=== PATIENT | female | born 1950 | race Caucasian/White ===

== ENCOUNTER 2019-09-20 11:25 | Observation (INO) | payer MEDICARE, BC ==
[~2019-09-20] VITALS: Ht 170.2 cm; Wt 82.3 kg
[2019-09-20] VITALS (10 sets, daily range): BP systolic 107–142; BP diastolic 62–82
[~2019-09-20 11:25] MED LIST: EMBREL SC; METHATREXATE; VIVELLE0.1 MG TD
--- NOTE | 2019-09-20 11:36 | NUR ---
PT TO ROOM FOR EXAM
--- NOTE | 2019-09-20 12:27 | NUR ---
PT HAD 20+ RUN OF V-TACH; PT STATES SHE FEELS SOB AND FEELS PALPITATIONS IN CHEST; MD NOTIFIED; MONITORING DEVICES IN PLACE; BP STABLE; SPOUSE AT BEDSIDE; ADVISED OF POC
--- NOTE | 2019-09-20 12:38 | NUR ---
AMIODERONE BOLUS STARTED AT THIS TIME; PT VERBALIZES UNDERSTANDING OF MEDICATIONS AND INDICATIONS; DR MORELAND AT BEDSIDE TO DISCUSS POC;WILL CONTINUE TO MONITOR
[2019-09-20 12:45] LABS: HEMOGLOBIN 13.6 g/dl (12.0-16.0); IMMATURE GRANULOCYTES 0.4 % (0.0-5.0); MEAN CELL VOLUME 87.6 fL CALC (80.0-100.0); MEAN CORPUSCULAR HGB 30.6 pG CALC (26.0-32.0); MEAN CORPUSCULAR HGB CONC 34.9 g/L CALC (32.0-36.0); NEUT# 5.39 thou/uL (2.00-7.15); RED BLOOD COUNT 4.45 mill/uL (4.20-5.60); RED CELL DISTRI WIDTH 11.9 % (11.5-15.5)
[2019-09-20] MEDS ORDERED: NORVASC2.5 M1 PO (12:45)
[2019-09-20] MEDS ORDERED: HYDROCHLOROT25 MG PO (12:46)
[2019-09-20] MEDS ORDERED: UROCIT-K 5540 MG PO (12:53)
[2019-09-20 13:01] LABS: ALBUMIN 4.4 g/dL (3.2-5.0); ALKALINE PHOSPHATASE 105 u/l (38-126); BUN 18 mg/dL (8-23); BUN/CREATININE RATIO 38 (12-20 (CALC)); CHLORIDE 100 mmol/l (95-108); CREATININE 0.5 mg/dL (0.5-1.0); GFR > 60 ML/MIN (>=60 (CALC)); GFR FOR AFR.AMER. > 60 ML/MIN (>=60 (CALC)); SGOT/AST 29 u/l (9-36); SODIUM 135 mmol/l (137-146); TOTAL PROTEIN 7.7 g/dL (6.3-8.2)
[2019-09-20 13:03] LABS: ANION GAP 15 (6-22 (CALC)); BILIRUBIN, TOTAL 0.6 mg/dL (0.0-1.4); CARBON DIOXIDE 23 mmol/l (22-30); POTASSIUM 2.9 mmol/l (3.5-5.1)
--- NOTE | 2019-09-20 13:09 | NUR ---
[place]REWICK PLACED FOR PT COMFORT AND TO REDUCE PT EXERTION
--- NOTE | 2019-09-20 14:10 | NUR ---
PT RESTING ON STRETCHER; NO S/S OF DISTRESS NOTED; PT ADVISED OF POC AND CONTINUED WAIT TIME FOR ADMISSION; VSS; AMIODERONE DRIP INFUSING; CALL LIGHT WITHIN REACH;WILL CONTINUE TO MONITOR
[2019-09-20 14:29] LABS: URINE BILIRUBIN - DIPSTICK NEGATIVE (NEGATIVE); URINE BLOOD DIPSTICK SMALL (NEGATIVE); URINE COLOR YELLOW; URINE GLUCOSE - DIPSTICK NEGATIVE (NEGATIVE); URINE KETONE NEGATIVE (NEGATIVE); URINE LEUK ESTERASE NEGATIVE (NEGATIVE); URINE NITRITE - DIPSTICK NEGATIVE (Negative); URINE PROTEIN - DIPSTICK NEGATIVE (NEG-TRACE); URINE UROBILINOGEN - DIPSTICK 0.2 E.U./dL (0.2)
[2019-09-20 14:31] LABS: URINE SQUAMOUS EPITHELIAL CELL FEW EPI/hpf (0-FEW); URINE WBC 0-2 WBC/hpf (0-5)
--- NOTE | 2019-09-20 15:10 | NUR ---
PT RESTING ON STRETCHER; TOLERATING AMIODERONE WELL; WILL CONTINUE TO MONITOR
--- NOTE | 2019-09-20 15:40 | NUR ---
PT ADMITTED TO ICU FROM ED, VIA STRETCHER. PT STOOD AND TRANSFERRED SELF FROM STRETCHER TO BS. PT WITH STEADY GAIT NOTED. PT A&OX4, ABLE TO MAKE NEEDS KNOWN, PT DENIES CP, PALPITATIONS, OR DISTRESS AT THIS TIME. SR ON TELEMETRY, HR 77. RESPIRATIONS EVEN/UNLABORED, SA02@100% RA. ABDOMEN SOFT, DISTENDED. NON-TENDER. BSX4 ACTIVE, LBM 3-12-20. PT ORIENTED TO BED, CALL LIGHT AND ROOM. AT BEDSIDE. CALL LIGHT IN REACH. WILL MONITOR.
--- NOTE | 2019-09-20 15:45 | NUR ---
Admission Note Report Given to: RANDY JURADO Transported by: Wheelchair X Stretcher Transported with: X Nurse Transporter X Patent IV O2 X Hydro Technician Location: X ICU MS2
--- NOTE | 2019-09-20 17:15 | NUR ---
DR. BARAJAS AT BEDSIDE FOR ASSESSMENT AND TO DISCUSS PLAN OF CARE. NEW ORDERS RECIEVED.
--- NOTE | 2019-09-20 17:39 | NUR ---
DIETARY ON UNIT, DINNER TRAY SET UP. CALL LIGHT IN REACH.
--- NOTE | 2019-09-20 17:59 | NUR ---
DAUGHTER ARRIVED AT BEDSIDE FOR VISIT. PT OFFERS NO COMPLAINTS AT THIS TIME. CALL LIGHT IN REACH.
--- NOTE | 2019-09-20 18:21 | NUR ---
PT ASSISTED TO BSC, THEN BACK TO BED. PT TOLERATED WELL.
--- NOTE | 2019-09-20 19:00 | NUR ---
YPATIENT SITS ON SIDE OF BED, ASSISTED STNDVY TO BSC. NO DIFFICULTY WALKING. ALERT AND ORIENTED X4. ON RA, NO SOB NOTED. HEAD TO TOE NURSING ASSESSMNET PERFORMED. SR ON TELE. NO COMPLAINTS OF PAIN. POC FOR TONIGHT DISCUSSED. RAC AND LH IV'S INTACT, AMIODARONE DRIP INFUSING PROPERLY. SELF REPSITIONS. CALL LIGHT WITHIN REACH.
--- NOTE | 2019-09-20 20:35 | NUR ---
PATIENT GIVEN LOVENOX, EDUACTED. NOW WASHING UP.NO ACUTE DISTRESS SHOWN. DENIES DIZZINESS OR PAIN.
--- NOTE | 2019-09-20 20:57 | NUR ---
PATIENT ASSISTED WITH PLACING CLEAN GOWN ON. NOW LAYS BACK IN BED. NO ACUTE DISTRES SSHOWN. CALL LIGHT WITHIN REACH.
--- NOTE | 2019-09-20 22:20 | NUR ---
PATIENT ABLE TO SWLALOE POTASSIUM PILLS WITH CRACKERS AND WATER. NO ACUTE DISTRESS SHOWN. LAUGHS AND CONVERSATES. CALL LIGHT WITHIN REACH.
--- NOTE | 2019-09-20 23:00 | NUR ---
PATIENT TUBULAR PRODUCTS FABRICATOR LIGHT, ASSIST STNBY TO BSC. BACK IN BED. NO COMPLAINTS. NO ACUTE DISTRESS SHOWN. CALL LIGHT WITHIN REACH.
--- NOTE | 2019-09-20 23:13 | NUR ---
CARDENE DRIP TITRATED PER PROTOCOL. PATIENT AWAKENS EASILY WHEN SPOKEN TO, NEURO CHECK PERFROMED PER DRIP PROTOCOL. PT ORIENTED X4. PUPILS UNCHANGED FROM PRIOR ASSESSMENT. REQUESTS ICE, PROVIDE. CALL LIGHT WITHIN REACH.
[2019-09-21] VITALS (13 sets, daily range): BP systolic 98–158; BP diastolic 53–76
--- NOTE | 2019-09-21 03:24 | NUR ---
PATIENT LAYS ON HER LEFT SIDE. COMPLAINS OF BED IS UNCOMFORTABLE. NO NEEDS AT THIS TIME. CALL LIGHT WITHIN REACH. AFEBRILE, SR ON TELE. ON RA.
--- NOTE | 2019-09-21 04:10 | NUR ---
PT MORTGAGE LOAN SPECIALIST LIGHT, ASSIST ANGE TO BSCDANIE. NOW LAYS BACK IN BED. CONVERSATES ABOUT HER RECENT STRESSES. CALL LIGHT WITHIN REACH.
[2019-09-21 05:40] LABS: ANION GAP 8 (6-22 (CALC)); BUN 12 mg/dL (8-23); BUN/CREATININE RATIO 24 (12-20 (CALC)); CARBON DIOXIDE 25 mmol/l (22-30); CHLORIDE 108 mmol/l (95-108); CREATININE 0.5 mg/dL (0.5-1.0); GFR > 60 ML/MIN (>=60 (CALC)); GFR FOR AFR.AMER. > 60 ML/MIN (>=60 (CALC)); MAGNESIUM 2.3 mg/dL (1.6-2.3); POTASSIUM 3.7 mmol/l (3.5-5.1); SODIUM 138 mmol/l (137-146)
--- NOTE | 2019-09-21 06:45 | NUR ---
RECIEVED REPORT FROM ELSA. ASSUMED PT CARE.
--- NOTE | 2019-09-21 07:30 | NUR ---
PT A&OX4, ABLE TO MAKE NEEDS KNOWN. PT REMAINS IN SR ON TELEMETRY, HR 78. AMIODARONE GTT CONTINUES. RESPIRATIONS EVEN/UNLABORED, LS CLEAR SAOR95%RA. PT DENIES CP, SOB OR DISTRESS AT THIS TIME. CALL LIGHT IN REINA. WILL MONITOR.
--- NOTE | 2019-09-21 08:24 | NUR ---
DR. BARAJAS AT BEDSIDE FOR ASSESSMENT AND TO DISCUSS PLAN OF CARE.
--- NOTE | 2019-09-21 09:00 | NUR ---
PT ASSISTED TO THE RECLINER, PT TRANSFERRED WELL. CALL LIGHT IN REACH. WILL MONITOR.
--- NOTE | 2019-09-21 09:59 | NUR ---
ARRIVED AT BEDSIDE.
[2019-09-21] MEDS ORDERED: TENORMIN50 MG PO (11:21)
--- NOTE | 2019-09-21 11:22 | NUR ---
DR. BARAJAS AT BEDSIDE FOR ASSESSMENT AND TO DISCUSS PLAN OF Care. NEW ORDERS RECIEVED.
--- NOTE | 2019-09-21 12:45 | NUR ---
IV site discontinued, cath intact. No edema , no redness, voices no discomfort.
--- NOTE | 2019-09-21 13:20 | NUR ---
Discharge instructions given. Patient verbalizes understanding of same. Discharged in stable condition via Wheelchair to Home with family. All belongings sent with pt.
== END 2019-09-21 13:20 | disposition home or self-care (01) ==
LOC: ED 11:25 → ED-I 13:34 → ED 14:11 → ICU 14:12 → ED-I 14:12 → ICU 15:53
PROVIDERS: Family Medicine; ADMIT Internal Medicine; ATTEND Internal Medicine
PROC: 3E0234Z Introduction of Serum, Toxoid and Vaccine into Muscle, Percutaneous Approach (ICD-10-PCS; principal; 2019-09-21)
DX: I47.2 Ventricular tachycardia (principal); I49.3 Ventricular premature depolarization; I10 Essential (primary) hypertension; M06.9 Rheumatoid arthritis, unspecified; Z23 Encounter for immunization
CPT/HCPCS: J0282; J1650; J3475

== ENCOUNTER 2020-08-15 12:20 | Emergency (ER) | payer MEDICARE, BC ==
[~2020-08-15 12:20] MED LIST changes: +HYDROCHLOROT25 MG PO; +NORVASC2.5 M1 PO; +TENORMIN50 MG PO; +UROCIT-K 5540 MG PO
== END 2020-08-15 13:05 | disposition left against medical advice (07) ==
LOC: ED 12:20 → LWOBS 13:05
DX: Z53.21 Procedure and treatment not carried out due to patient leaving prior to being seen by health care provider (principal)

== ENCOUNTER 2020-12-28 19:07 | Observation (INO) | payer MEDICARE, BC ==
[~2020-12-28] VITALS: Ht 167.6 cm; Wt 82.0 kg
--- NOTE | 2020-12-28 19:07 | NUR ---
BY EMS TO ROOM AMBULATORY
[2020-12-28 19:48] LABS: HEMATOCRIT 36.7 % (37.0-47.0); HEMOGLOBIN 12.3 g/dl (12.0-16.0); IMMATURE GRANULOCYTES 0.3 % (0.0-5.0); MEAN CELL VOLUME 91.3 fL CALC (80.0-100.0); MEAN CORPUSCULAR HGB 30.6 pG CALC (26.0-32.0); MEAN CORPUSCULAR HGB CONC 33.5 g/dL CAL (32.0-36.0); NEUT# 5.63 thou/uL (2.00-7.15); RED BLOOD COUNT 4.02 mill/uL (4.20-5.60); RED CELL DISTRI WIDTH 13.7 % (11.5-15.5)
--- NOTE | 2020-12-28 20:00 | NUR ---
PT PLEASANT AND NAD, VSS, SR ON MONITOR AND NO PALPITATIONS AT THIS TIME
[2020-12-28 20:02] LABS: D-DIMER 0.53 mg/L (0.19-0.60)
[2020-12-28] MEDS ORDERED: ENBREL50 MG/M1 SC (20:06)
[2020-12-28] MEDS ORDERED: METHOTREXATE S2.5 MG PO (20:07)
[2020-12-28] MEDS ORDERED: ELIQUIS5 MG PO (20:08)
[2020-12-28] MEDS ORDERED: ATENOLOL25 MG PO (20:08)
[2020-12-28 20:16] LABS: ACT PARTIAL THROMBO TIME 23.9 SECONDS (20.0-32.5); ALBUMIN 3.7 g/dL (3.2-5.0); ALKALINE PHOSPHATASE 106 u/l (38-126); ANION GAP 12 (6-22 (CALC)); BILIRUBIN, TOTAL 0.6 mg/dL (0.0-1.4); BUN 18 mg/dL (8-23); BUN/CREATININE RATIO 35 (12-20 (CALC)); CHLORIDE 107 mmol/l (95-108); CREATININE 0.5 mg/dL (0.5-1.0); GFR > 60 ML/MIN (>=60 (CALC)); GFR FOR AFR.AMER. > 60 ML/MIN (>=60 (CALC)); INTERNATIONAL NORMALIZED RATIO 1.1 RATIO (0.7-1.3); POTASSIUM 3.7 mmol/l (3.5-5.1); PROTHROMBIN TIME 11.2 SECONDS (9.0-12.5); SGOT/AST 55 u/l (9-36); SODIUM 135 mmol/l (137-146); TOTAL PROTEIN 6.5 g/dL (6.3-8.2)
[2020-12-28 20:18] LABS: CARBON DIOXIDE 20 mmol/l (22-30)
[2020-12-28 20:28] LABS: MYOGLOBIN 37 ng/mL (0 - 62)
[2020-12-28 22:28] VITALS: BP 118/78
--- NOTE | 2020-12-28 23:00 | NUR ---
PATIENT ADMITTED FROM ER VIA WHEELCHAIR WITH ER STAFF IN ATTENDANCE. PATIENT IS ABLE TO STAND AND TRANSFER TO BED ON HER OWN. PATIENT IS AWAKE ALERT AND ORIENTEDX3. ADMITTED FOR PALPATATIONS, A-FIB. PATIENT ON TELE AND CURRENTLY SR-63. PATIENT DENIES ANY PALPATATIONS, CHEST PAIN OR SOB. STATES THAT IT STOPPED AFTER COMING TO THE HOSPTIAL. STATES THAT SHE DOES GO IN AND OUT OF A-FIB. TELE MONITOR IN PLACE. IV TO RIGHT FOREARM INTACT-IVF NS HUNG AND INFUSING AT 50CC/HR. HR-REGULAR AT THIS TIME. LUNGS ARE CLEAR. ABD IS SOFT WITH ACTIVE BS. STATES THAT SHE HAD BM TODAY. DENIES ANY DIFFICULTY WITH URINATION. NO PERIPHERAL EDEMA NOTED. PULSES ARE PALPABLE. PPATIENT PROVIDED WITH TURKEY DINNER. APPETITE IF GOOD. ORIENTED PATIENT TO ROOM AND SURROUNDINGS. INSTRUCTED ON USE OF NURSE CALL LIGHT SYSTEM, TV REMOTE AND PHONE. SAFETY PRECAUTIONS REINFORCED. CALL LIGHT IN REACH. WILL CONT TO MONITOR.
[2020-12-28 23:55] VITALS: BP 131/82
--- NOTE | 2020-12-29 03:21 | NUR ---
PATIENT RESTING IN BED AT THIS TIME WITH EYES CLOSED. RESPS ARE EVEN AND UNLABORED. TELE MONITOR IN PLACE. IVF NS PATENT AND INFUSING RIGHT FOREARM SITE AT 50CC/HR. CALL LIGHT IN RE4ACH. WILL CONT TO MONITOR.
[2020-12-29 04:19] VITALS: BP 123/73
--- NOTE | 2020-12-29 04:34 | NUR ---
PATIENT CALLED AND ASSISTED TO THE BR TO VOID AND THEN BACK TO BED. PATIENT IS STEADY ON HER FEET. TELE MONITOR IN PLACE-LAST READING SR-63. IVF NS PATENT AND INFUSING AT 50CC/HR VIA RIGHT FOREARM. CALL LIGHT IN REACH. WILL CONT TO MONITOR.
[2020-12-29 05:27] LABS: HEMATOCRIT 33.4 % (37.0-47.0); HEMOGLOBIN 11.4 g/dl (12.0-16.0); IMMATURE GRANULOCYTES 0.3 % (0.0-5.0); MEAN CELL VOLUME 92.3 fL CALC (80.0-100.0); MEAN CORPUSCULAR HGB 31.5 pG CALC (26.0-32.0); MEAN CORPUSCULAR HGB CONC 34.1 g/dL CAL (32.0-36.0); NEUT# 2.94 thou/uL (2.00-7.15); RED BLOOD COUNT 3.62 mill/uL (4.20-5.60)
[2020-12-29 05:45] LABS: ANION GAP 11 (6-22 (CALC)); BUN 17 mg/dL (8-23); BUN/CREATININE RATIO 31 (12-20 (CALC)); CARBON DIOXIDE 23 mmol/l (22-30); CHLORIDE 106 mmol/l (95-108); CREATININE 0.5 mg/dL (0.5-1.0); GFR > 60 ML/MIN (>=60 (CALC)); GFR FOR AFR.AMER. > 60 ML/MIN (>=60 (CALC)); POTASSIUM 3.7 mmol/l (3.5-5.1); SODIUM 136 mmol/l (137-146)
[2020-12-29 07:13] VITALS: BP 138/84
--- NOTE | 2020-12-29 08:38 | NUR ---
SHIFT CHANGE REPORT, PT AWAKE ALERT AND ORIENTED RESTING IN BED, TELE MONITOR IN PLACE, NO C/O DISCOMFORT, CALL SAINI IN REACH AND BED LOCKED IN LOWEST POSITION.
[2020-12-29 11:48] VITALS: BP 126/78
--- NOTE | 2020-12-29 13:20 | NUR ---
Discharge instructions given. Patient verbalizes understanding of same. Discharged in good condition via Wheelchair to Home with spouse. All belongings sent with pt.
== END 2020-12-29 13:17 | disposition home or self-care (01) ==
LOC: ED 19:07 → ED-I 20:43 → ED 20:55 → MS2 20:56
PROVIDERS: Family Medicine; ADMIT Internal Medicine; ATTEND Internal Medicine
DX: I48.0 Paroxysmal atrial fibrillation (principal); I10 Essential (primary) hypertension; M06.9 Rheumatoid arthritis, unspecified; Z79.01 Long term (current) use of anticoagulants; Z20.822 Contact with and (suspected) exposure to COVID-19
CPT/HCPCS: G0378

== ENCOUNTER 2022-03-10 17:23 | Emergency (ER) | payer MEDICARE, BC ==
[~2022-03-10] VITALS: Ht 167.6 cm; Wt 80.0 kg
[2022-03-10] VITALS (19 sets, daily range): BP systolic 101–134; BP diastolic 63–86
[~2022-03-10 17:23] MED LIST changes: +ATENOLOL25 MG PO; +ELIQUIS5 MG PO; +ENBREL50 MG/M1 SC; +METHOTREXATE S2.5 MG PO
[2022-03-10] MEDS ORDERED: FLECAINIDE50 MG PO (17:33)
[2022-03-10] MEDS ORDERED: DILT-XR120 MG PO (17:34)
[2022-03-10 17:44] LABS: HEMATOCRIT 38.8 % (37.0-47.0); HEMOGLOBIN 13.2 g/dl (12.0-16.0); IMMATURE GRANULOCYTES 0.1 % (0.0-5.0); MEAN CELL VOLUME 90.7 fL CALC (80.0-100.0); MEAN CORPUSCULAR HGB 30.8 pG CALC (26.0-32.0); NEUT# 5.74 thou/uL (2.00-7.15); RED BLOOD COUNT 4.28 mill/uL (4.20-5.60); RED CELL DISTRI WIDTH 13.3 % (11.5-15.5)
[2022-03-10 18:06] LABS: ALBUMIN 4.3 g/dL (3.2-5.0); ALKALINE PHOSPHATASE 111 u/l (38-126); ANION GAP 17 (6-22 (CALC)); BILIRUBIN, TOTAL 0.5 mg/dL (0.0-1.4); BUN 18 mg/dL (8-23); BUN/CREATININE RATIO 32 (12-20 (CALC)); CHLORIDE 109 mmol/l (95-108); CREATININE 0.6 mg/dL (0.5-1.0); GFR FOR AFR.AMER. > 60 ML/MIN (>=60 (CALC)); GFR OTHER RACES > 60 ML/MIN (>=60 (CALC)); SGOT/AST 25 u/l (9-36); SODIUM 140 mmol/l (137-146); TOTAL PROTEIN 7.1 g/dL (6.3-8.2)
[2022-03-10 18:10] LABS: CARBON DIOXIDE 18 mmol/l (22-30)
[2022-03-10 18:17] LABS: MYOGLOBIN 28 ng/mL (0 - 62)
[2022-03-11] VITALS (25 sets, daily range): BP systolic 99–139; BP diastolic 63–83
== END 2022-03-11 05:56 ==
LOC: ED 17:23
PROVIDERS: Nurse Practitioner
DX: I48.0 Paroxysmal atrial fibrillation (principal); I10 Essential (primary) hypertension; M06.9 Rheumatoid arthritis, unspecified